=== PATIENT | female | born 1980 | race African-American/Black ===

== ENCOUNTER 2019-03-06 08:40 | Emergency (ER) | payer MEDICAID, OTHER ==
[~2019-03-06] VITALS: Ht 175.3 cm; Wt 82.0 kg
[2019-03-06] MEDS ORDERED: HYDROCODONE/ACETAMINOPHEN 5/325MG TABLET PO ONE (10:00)
[2019-03-06] MEDS ORDERED: BACITRACIN 15GM TUBE TOP ONE (11:30)
[2019-03-06 11:45] VITALS: BP 121/67
== END 2019-03-06 11:45 | disposition home or self-care (01) ==
LOC: ER 08:40
DX: S39.012A Strain of muscle, fascia and tendon of lower back, initial encounter (principal); S70.02XA Contusion of left hip, initial encounter; S80.811A Abrasion, right lower leg, initial encounter; W22.8XXA Striking against or struck by other objects, initial encounter; Y93.89 Activity, other specified; Y92.89 Other specified places as the place of occurrence of the external cause; Y99.8 Other external cause status
CPT/HCPCS: 72100; 73521; 99283